=== PATIENT | male | born 1975 | race African-American/Black ===

== ENCOUNTER 2024-08-06 22:00 | Inpatient (IN) | payer OTHER ==
[~2024-08-06] VITALS: Ht 185.4 cm; Wt 122.7 kg
[2024-08-06 22:25] VITALS: TEMP 98.3
[2024-08-06] MEDS ORDERED: SODIUM CHLORIDE 0.9% 100 ML ONE (22:31)
[2024-08-06] MEDS ORDERED: IOHEXOL 350 MG/ML 100 ML VIAL ONE (22:33)
[2024-08-06] MEDS: SODIUM CHLORIDE 0.9% 1,000 ML IV ONE (23:02)
[2024-08-06] MEDS: ONDANSETRON HCL 4 MG/2 ML VIAL IVP ONE (23:02)
[2024-08-06] MEDS: MORPHINE SULFATE 2 MG/ML SYRINGE IVP ONE (23:02)
[2024-08-06 23:09] LABS: BASOPHILS % (AUTO) 0.1 % (0.0-2.0); EOSINOPHILS % (AUTO) 0.8 % (1.0-6.0); HEMATOCRIT 42.1 % (41-53); HEMOGLOBIN 13.9 g/dL (13.5-17.5); LYMPHOCYTES # (AUTO) 1.1 K/uL (1.0-4.8); LYMPHOCYTES % (AUTO) 19.7 % (22.0-44.0); MEAN CORPUSCULAR HEMOGLOBIN 28.5 pg (26.0-34.0); MEAN CORPUSCULAR HGB CONC 33.1 G/dL (31.0-37.0); MEAN CORPUSCULAR VOLUME 86 fL (80-100); MONOCYTES # (AUTO) 0.5 K/uL (0.1-1.0); MONOCYTES % (AUTO) 8.6 % (2.0-9.0); NEUTROPHILS # (AUTO) 3.8 K/uL (1.8-7.7); NEUTROPHILS % (AUTO) 70.8 % (40.0-70.0); PLATELET COUNT (AUTO) 241 K/uL (150-450); RED BLOOD CELL COUNT(AUTO) 4.88 MIL/uL (4.50-5.90); WHITE BLOOD COUNT (AUTO) 5.4 K/uL (4.5-11.0)
[2024-08-06] MEDS: FAMOTIDINE 20 MG/2 ML VIAL IVP ONE (23:10)
[2024-08-06 23:24] LABS: ANION GAP 10 mmol/L (8-16); CARBON DIOXIDE 27 mmol/L (22-29); CHLORIDE 100 mmol/L (98-107); CREATININE 0.95 mg/dL (0.60-1.30); GLOMERULAR FILTR. RATE CALC > 60 mL/min (>60); GLUCOSE,RANDOM 91 mg/dL (70-110); POTASSIUM 4.5 mmol/L (3.5-5.1); SODIUM SERUM 137 mmol/L (136-145); UREA NITROGEN, BLOOD 12 mg/dL (7-18)
[2024-08-06 23:28] LABS: ALANINE AMINOTRANSFERASE 40 U/L (12-78); ALBUMIN 3.4 g/dL (3.4-5.0); ALKALINE PHOSPHATASE 93 U/L (46-116); ASPARTATE AMINOTRANSFERASE 56 U/L (15-37); LIPASE 20 U/L (16-77)
[2024-08-07] MEDS: MORPHINE SULFATE 2 MG/ML SYRINGE IVP ONE (01:18)
[2024-08-07 02:06] LABS: APPEARANCE,URINE CLEAR (CLEAR); BILIRUBIN,URINE NEGATIVE (NEGATIVE); COLOR,URINE LIGHT YELLOW (YELLOW); GLUCOSE, URINE (UA) NEGATIVE (NEGATIVE); KETONES,URINE NEGATIVE (NEGATIVE); LEUKOCYTE ESTERASE ,URINE NEGATIVE (NEGATIVE); NITRATE,URINE NEGATIVE (NEGATIVE); OCCULT BLOOD,URINE NEGATIVE (NEGATIVE); PROTEIN,URINE NEGATIVE (NEGATIVE); SPECIFIC GRAVITIY, URINE 1.031 (1.003-1.030); UROBILINOGEN,URINE <=1.0 mg/dL (<=1.0)
[2024-08-07] MEDS ORDERED: BISACODYL 10 MG RECTAL RECTAL SUPPOSITORY PR PRN (02:15)
[2024-08-07] MEDS ORDERED: ACETAMINOPHEN 325 MG TABLET PO PRN (02:15)
[2024-08-07] MEDS ORDERED: MAGNESIUM HYDROXIDE SUSPENSION 30 ML UDCUP PO PRN (02:15)
[2024-08-07] MEDS ORDERED: ONDANSETRON HCL 4 MG/2 ML VIAL IVP PRN (02:15)
[2024-08-07] MEDS ORDERED: ZOLPIDEM TARTRATE 5 MG TABLET PO PRN (02:15)
[2024-08-07] MEDS: SODIUM CHLORIDE 0.9% 1,000 ML IV SCH (05:31)
[2024-08-07] MEDS: MORPHINE SULFATE 2 MG/ML SYRINGE IVP PRN (05:32)
[2024-08-07] MEDS: DOCUSATE SODIUM 100 MG CAPSULE PO SCH (07:42)
[2024-08-07] MEDS: HEPARIN SODIUM,PORCINE 5,000 UNITS/ML VIAL SQ SCH (07:42)
[2024-08-07 07:43] VITALS: BP 125/78; PULSE 76; RESP 18; O2SAT 95
[2024-08-07] MEDS: PANTOPRAZOLE SODIUM 40 MG DR TABLET PO SCH (08:07)
[2024-08-07] MEDS ORDERED: LISI-662 PO (10:16)
[2024-08-07] MEDS ORDERED: NALO4SPR22 NASAL (10:16)
[2024-08-07] MEDS ORDERED: DIPH-1243 PO (10:16)
[2024-08-07] MEDS ORDERED: CALC260T16 PO (10:16)
[2024-08-07] MEDS ORDERED: BUPR1FIL7 SL (10:16)
[2024-08-07] MEDS ORDERED: MOME17SP11 NASAL (10:16)
[2024-08-07] MEDS ORDERED: NITR0.4T52 SL (10:16)
[2024-08-07] MEDS ORDERED: ESCI5SOL2 PO (10:16)
[2024-08-07] MEDS ORDERED: FAMO20 PO (10:16)
[2024-08-07] MEDS ORDERED: AMLO-257 PO (10:16)
[2024-08-07] MEDS ORDERED: HYDR25TA2 PO (10:16)
[2024-08-07] MEDS ORDERED: MONT-35 PO (10:16)
[2024-08-07] MEDS ORDERED: ACET-2080 PO (10:16)
[2024-08-07] MEDS ORDERED: LEVA15HF3 PUFF (10:16)
[2024-08-07] MEDS ORDERED: ATOR40TA71 PO (10:16)
[2024-08-07] MEDS ORDERED: LACT10SO10 PO (10:16)
[2024-08-07] MEDS ORDERED: HYDR-4268 TP (10:16)
[2024-08-07] MEDS ORDERED: ACET650S14 PR (10:16)
[2024-08-07] MEDS ORDERED: DICL25TA9 PO (10:16)
[2024-08-07] MEDS ORDERED: LIDO35.422 TP (10:16)
[2024-08-07] MEDS: HYDROCODONE/ACETAMINOPHEN 5-325 MG TABLET PO PRN (13:44)
== END 2024-08-07 18:40 | DRG 392 ==
LOC: EMS 22:00 → EDH 08-07 02:12 → 6S 08-07 08:54
PROVIDERS: ADMIT Internal Medicine; ATTEND Internal Medicine
DX: R10.84 Generalized abdominal pain (principal); F11.20 Opioid dependence, uncomplicated; I10 Essential (primary) hypertension; E78.5 Hyperlipidemia, unspecified; J45.909 Unspecified asthma, uncomplicated; Z79.899 Other long term (current) drug therapy; Z88.6 Allergy status to analgesic agent
CPT/HCPCS: 74177; 76705; 80048; 80076; 81003; 83690; 85025; 99285; J1644; J2270; J2405; J3490; J7030; J7050

== ENCOUNTER 2024-09-10 06:52 | Inpatient (IN) | payer OTHER ==
[~2024-09-10] VITALS: Ht 185.4 cm; Wt 122.7 kg
[~2024-09-10 06:52] MED LIST: ACET-2080 PO; ACET650S14 PR; AMLO-257 PO; ATOR40TA71 PO; BUPR1FIL7 SL; CALC260T16 PO; DICL25TA9 PO; DIPH-1243 PO; ESCI5SOL2 PO; FAMO20 PO; HYDR-4268 TP; HYDR25TA2 PO; LACT10SO10 PO; LEVA15HF3 PUFF; LIDO35.422 TP; LISI-662 PO; MOME17SP11 NASAL; MONT-35 PO; NALO4SPR22 NASAL; NITR0.4T52 SL
[2024-09-10] MEDS ORDERED: SODIUM CHLORIDE 0.9% 100 ML ONE (07:03)
[2024-09-10] MEDS ORDERED: IOHEXOL 350 MG/ML 100 ML VIAL ONE (07:03)
[2024-09-10 07:25] LABS: BASOPHILS % (AUTO) 0.3 % (0.0-2.0); EOSINOPHILS % (AUTO) 9.1 % (1.0-6.0); HEMOGLOBIN 15.2 g/dL (13.5-17.5); LYMPHOCYTES # (AUTO) 2.5 K/uL (1.0-4.8); LYMPHOCYTES % (AUTO) 33.6 % (22.0-44.0); MEAN CORPUSCULAR HEMOGLOBIN 29.9 pg (26.0-34.0); MEAN CORPUSCULAR HGB CONC 32.9 G/dL (31.0-37.0); MEAN CORPUSCULAR VOLUME 91 fL (80-100); MONOCYTES # (AUTO) 0.4 K/uL (0.1-1.0); MONOCYTES % (AUTO) 6.1 % (2.0-9.0); NEUTROPHILS # (AUTO) 3.7 K/uL (1.8-7.7); NEUTROPHILS % (AUTO) 50.9 % (40.0-70.0); PLATELET COUNT (AUTO) 271 K/uL (150-450); RED BLOOD CELL COUNT(AUTO) 5.06 MIL/uL (4.50-5.90); RED CELL DISTRIBUTION WIDTH 15.7 % (11.5-14.5); WHITE BLOOD COUNT (AUTO) 7.3 K/uL (4.5-11.0)
[2024-09-10 07:36] LABS: CHLORIDE 103 mmol/L (98-107); POTASSIUM 4.4 mmol/L (3.5-5.1); SODIUM SERUM 141 mmol/L (136-145)
[2024-09-10 07:37] LABS: ANION GAP 10 mmol/L (8-16); CALCIUM, TOTAL 9.6 mg/dL (8.8-10.5); CARBON DIOXIDE 28 mmol/L (22-29); CREATININE 0.99 mg/dL (0.60-1.30); GLOMERULAR FILTR. RATE CALC > 60 mL/min (>60); GLUCOSE,RANDOM 99 mg/dL (70-110); LIPASE 34 U/L (16-77); UREA NITROGEN, BLOOD 6 mg/dL (7-18)
[2024-09-10 07:40] LABS: ALBUMIN 3.5 g/dL (3.4-5.0); BILIRUBIN,DIRECT 0.2 mg/dL (0.00-0.20); BILIRUBIN,TOTAL 0.7 mg/dL (0.1-1.0); TOTAL PROTEIN, SERUM 8.6 g/dL (6.4-8.2)
[2024-09-10] MEDS: SODIUM CHLORIDE 0.9% 1,000 ML IV ONE (08:43)
[2024-09-10] MEDS: MAG HYDROX/ALUMINUM HYD/SIMETH 30 ML SUSPENSION UDCUP PO ONE (08:44)
[2024-09-10] MEDS: ACETAMINOPHEN 500 MG TABLET PO ONE (08:44)
[2024-09-10] MEDS: ONDANSETRON HCL 4 MG/2 ML VIAL IVP ONE (08:44)
[2024-09-10] MEDS: FAMOTIDINE 20 MG/2 ML VIAL IVP ONE (08:44)
[2024-09-10] MEDS: MORPHINE SULFATE 2 MG/ML SYRINGE IVP ONE (08:44)
[2024-09-10] MEDS ORDERED: ACETAMINOPHEN 325 MG TABLET PO PRN (11:15)
[2024-09-10] MEDS ORDERED: ZOLPIDEM TARTRATE 5 MG TABLET PO PRN (11:15)
[2024-09-10] MEDS ORDERED: MAGNESIUM HYDROXIDE SUSPENSION 30 ML UDCUP PO PRN (11:15)
[2024-09-10 11:18] LABS: APPEARANCE,URINE CLEAR (CLEAR); BILIRUBIN,URINE NEGATIVE (NEGATIVE); COLOR,URINE LIGHT YELLOW (YELLOW); GLUCOSE, URINE (UA) NEGATIVE (NEGATIVE); KETONES,URINE NEGATIVE (NEGATIVE); LEUKOCYTE ESTERASE ,URINE NEGATIVE (NEGATIVE); NITRATE,URINE NEGATIVE (NEGATIVE); OCCULT BLOOD,URINE NEGATIVE (NEGATIVE); PROTEIN,URINE NEGATIVE (NEGATIVE); SPECIFIC GRAVITIY, URINE 1.027 (1.003-1.030); UROBILINOGEN,URINE <=1.0 mg/dL (<=1.0)
[2024-09-10] MEDS ORDERED: DIPH50 PO (11:44)
[2024-09-10] MEDS ORDERED: ESCI20TA87 PO (11:44)
[2024-09-10] MEDS: AmLODIPine BESYLATE 5 MG TABLET PO SCH (11:52)
[2024-09-10] MEDS: PANTOPRAZOLE SODIUM 40 MG DR TABLET PO SCH (11:52)
[2024-09-10 12:46] VITALS: BP 138/80; PULSE 78; RESP 19; TEMP 98.4; O2SAT 97
[2024-09-10] MEDS ORDERED: HEPARIN SODIUM,PORCINE 5,000 UNITS/ML VIAL SQ SCH (16:00)
== END 2024-09-10 14:07 | disposition left against medical advice (07) | DRG 392 ==
LOC: EMS 06:52 → EDH 10:19
PROVIDERS: ADMIT Internal Medicine; ATTEND Internal Medicine
DX: R10.84 Generalized abdominal pain (principal); E66.9 Obesity, unspecified; E78.5 Hyperlipidemia, unspecified; K21.9 Gastro-esophageal reflux disease without esophagitis; I10 Essential (primary) hypertension; Z53.29 Procedure and treatment not carried out because of patient's decision for other reasons; Z88.6 Allergy status to analgesic agent; Z68.35 Body mass index [BMI] 35.0-35.9, adult
CPT/HCPCS: 74177; 80048; 80076; 81003; 83690; 85025; 99285; G0378; J2270; J2405; J3490; J7030; J7050

== ENCOUNTER 2024-11-23 13:18 | Inpatient (IN) | payer OTHER ==
[~2024-11-23] VITALS: Ht 185.4 cm; Wt 130.0 kg
[~2024-11-23 13:18] MED LIST changes: -DIPH-1243 PO; +DIPH50 PO; +ESCI20TA87 PO; -ESCI5SOL2 PO
[2024-11-23 14:05] LABS: BASOPHILS % (AUTO) 0.1 % (0.0-2.0); EOSINOPHILS % (AUTO) 7.2 % (1.0-6.0); HEMATOCRIT 44.9 % (41-53); HEMOGLOBIN 15.1 g/dL (13.5-17.5); LYMPHOCYTES # (AUTO) 1.9 K/uL (1.0-4.8); LYMPHOCYTES % (AUTO) 25.2 % (22.0-44.0); MEAN CORPUSCULAR HEMOGLOBIN 29.6 pg (26.0-34.0); MEAN CORPUSCULAR HGB CONC 33.6 G/dL (31.0-37.0); MEAN CORPUSCULAR VOLUME 88 fL (80-100); MONOCYTES # (AUTO) 0.6 K/uL (0.1-1.0); MONOCYTES % (AUTO) 8.1 % (2.0-9.0); NEUTROPHILS # (AUTO) 4.5 K/uL (1.8-7.7); NEUTROPHILS % (AUTO) 59.4 % (40.0-70.0); PLATELET COUNT (AUTO) 282 K/uL (150-450); RED BLOOD CELL COUNT(AUTO) 5.09 MIL/uL (4.50-5.90); RED CELL DISTRIBUTION WIDTH 14.3 % (11.5-14.5); WHITE BLOOD COUNT (AUTO) 7.5 K/uL (4.5-11.0)
[2024-11-23 14:17] LABS: PROTHROMBIN TIME 10.5 SEC (9.4-11.6)
[2024-11-23 14:18] LABS: ANION GAP 8 mmol/L (8-16); CALCIUM, TOTAL 8.7 mg/dL (8.8-10.5); CARBON DIOXIDE 29 mmol/L (22-29); CHLORIDE 98 mmol/L (98-107); CREATININE 0.78 mg/dL (0.60-1.30); GLOMERULAR FILTR. RATE CALC > 60 mL/min (>60); GLUCOSE,RANDOM 112 mg/dL (70-110); POTASSIUM 3.3 mmol/L (3.5-5.1); SODIUM SERUM 135 mmol/L (136-145); UREA NITROGEN, BLOOD 13 mg/dL (7-18)
[2024-11-23 14:20] LABS: B-TYPE NATRIURETIC PEPTIDE < 5 pg/mL (0-100)
[2024-11-23] MEDS ORDERED: SODIUM CHLORIDE 0.9% 100 ML ONE (14:22)
[2024-11-23] MEDS ORDERED: IOHEXOL 350 MG/ML 100 ML VIAL ONE (14:22)
[2024-11-23] MEDS ORDERED: LACT10SO85 PO (14:22)
[2024-11-23 14:23] LABS: ALBUMIN 3.3 g/dL (3.4-5.0); BILIRUBIN,DIRECT 0.1 mg/dL (0.00-0.20); BILIRUBIN,TOTAL 0.6 mg/dL (0.1-1.0); TOTAL PROTEIN, SERUM 7.2 g/dL (6.4-8.2)
[2024-11-23 14:25] LABS: CREATINE KINASE, TOTAL ONLY 262 U/L (39-308)
[2024-11-23 14:26] LABS: TROPONIN I-HIGH SENSITIVITY 4 ng/L (<76)
[2024-11-23] MEDS: SODIUM CHLORIDE 0.9% 1,000 ML IV ONE ×2 (14:29→17:17)
[2024-11-23] MEDS: MAG HYDROX/ALUMINUM HYD/SIMETH 30 ML SUSPENSION UDCUP PO ONE (14:29)
[2024-11-23] MEDS: FAMOTIDINE 20 MG/2 ML VIAL IVP ONE (14:29)
[2024-11-23] MEDS ORDERED: MAGNESIUM HYDROXIDE SUSPENSION 30 ML UDCUP PO PRN (15:00)
[2024-11-23] MEDS ORDERED: ONDANSETRON HCL 4 MG/2 ML VIAL IVP PRN (15:00)
[2024-11-23] MEDS: BISMUTH SUBSALICYLATE 525 MG/30 ML SUSPENSION UDCUP PO PRN (15:13)
[2024-11-23] MEDS: ACETAMINOPHEN 1000 MG/ISO-OSM 100 ML IV ONE (15:14)
[2024-11-23] MEDS ORDERED: POTASSIUM CHL 10 MEQ/WATER 50 ML IV PRN (15:15)
[2024-11-23] MEDS: POTASSIUM CHLORIDE 20 MEQ ER TABLET PO PRN (15:21)
[2024-11-23] MEDS: HEPARIN SODIUM,PORCINE 5,000 UNITS/ML VIAL SQ SCH (16:00)
[2024-11-23 17:44] LABS: APPEARANCE,URINE CLEAR (CLEAR); BILIRUBIN,URINE NEGATIVE (NEGATIVE); COLOR,URINE LIGHT YELLOW (YELLOW); GLUCOSE, URINE (UA) NEGATIVE (NEGATIVE); KETONES,URINE NEGATIVE (NEGATIVE); LEUKOCYTE ESTERASE ,URINE NEGATIVE (NEGATIVE); NITRATE,URINE NEGATIVE (NEGATIVE); OCCULT BLOOD,URINE NEGATIVE (NEGATIVE); PH,URINE 7.5 (5.0-8.0); PROTEIN,URINE NEGATIVE (NEGATIVE); SPECIFIC GRAVITIY, URINE 1.022 (1.003-1.030); UROBILINOGEN,URINE <=1.0 mg/dL (<=1.0)
[2024-11-23 17:45] LABS: PH,URINE DRUG SCREEN 7.5 (5.0-8.0)
[2024-11-23 17:51] LABS: ALCOHOL, URINE DRUG SCREEN NEGATIVE (NEGATIVE); AMPHET/METH SCREEN,URINE NEGATIVE (NEGATIVE); BARBITURATE SCREEN, URINE NEGATIVE (NEGATIVE); BENZODIAZEPINES SCREEN,URINE NEGATIVE (NEGATIVE); CANNABINOID SCREEN,URINE NEGATIVE (NEGATIVE); COCAINE SCREEN,URINE NEGATIVE (NEGATIVE); METHADONE SCREEN, URINE NEGATIVE (NEGATIVE); OPIATE SCREEN,URINE POSITIVE (NEGATIVE); PHENCYCLIDINE SCREEN,URINE NEGATIVE (NEGATIVE)
[2024-11-23 18:30] VITALS: O2SAT 100
[2024-11-23] MEDS: FAMOTIDINE 20 MG TABLET PO SCH (21:26)
[2024-11-23] MEDS: ZOLPIDEM TARTRATE 5 MG TABLET PO PRN (21:26)
[2024-11-23 21:29] VITALS: BP 137/89; PULSE 98; RESP 18; TEMP 98.6; O2SAT 98
[2024-11-23] MEDS: TraMADol HCL 50 MG TABLET PO PRN (21:46)
[2024-11-24 07:55] VITALS: BP 125/89; PULSE 84; RESP 20; TEMP 98.1; O2SAT 98
[2024-11-24] MEDS: ACETAMINOPHEN 325 MG TABLET PO PRN (08:57)
[2024-11-24] MEDS ORDERED: ACET-2247 PO (13:38)
[2024-11-24] MEDS ORDERED: MAGN-169 PO (13:38)
== END 2024-11-24 16:50 | DRG 392 ==
LOC: EMS 13:20 → EDH 14:55 → 6S 21:15
PROVIDERS: ADMIT Internal Medicine; ATTEND Internal Medicine
DX: R10.84 Generalized abdominal pain (principal); E87.6 Hypokalemia; E66.9 Obesity, unspecified; I10 Essential (primary) hypertension; R19.7 Diarrhea, unspecified; K21.9 Gastro-esophageal reflux disease without esophagitis; Z88.6 Allergy status to analgesic agent; Z68.37 Body mass index [BMI] 37.0-37.9, adult
CPT/HCPCS: 71045; 74177; 80048; 80076; 80307; 81003; 82550; 83690; 83880; 84132; 84484; 85025; 85610; 85730; 89055; 93005; 99285; J0131; J1644; J3490; J7030; J7050; 36415-L1; 36415-TC